=== PATIENT | male | born 1985 | race Caucasian/White ===

== ENCOUNTER 2016-11-18 21:10 | Emergency (ER) | payer OTHER ==
[~2016-11-18] VITALS: Ht 185.4 cm; Wt 95.5 kg
[2016-11-18 21:33] VITALS: BP 145/92; PULSE 78; RESP 24; O2SAT 99
--- NOTE | 2016-11-18 22:56 | ED.REPORT ---
HPI-General Illness Date of Service Nov 18, 2016 ED Provider: Adi Wayne MD A 31 year old male presents to the ED seeking help for opioid dependence that began 3 months ago. Patient has had several previous injuries that resulted in chronic neck and back pain. He began taking approx. 90 mg of Oxycodone per day 3 months ago. He also reports smoking heroin on occasion. Patient last used opiates this morning and also admits to using Clonazepam. He denies any EtOH use , THC use or cigarette usage. Nursing Notes Stated Complaint: MEDS TO SEE QUENTIN Chief Complaint: Substance Abuse Nursing Notes Reviewed: Yes Allergies: Coded Allergies: No Known Allergies (Verified , 11/18/16) Scheduled Buprenorphine HCl/Naloxone HCl (Suboxone 8 mg-2 mg Sl Film) 1 Each Film 1 EACH SL DAILY General Time Seen by MD: 22:33 Chief Complaint Other (Opiod dependencce) Hx Obtained From: Patient Arrived By: Walk-in Sudden in Onset?: No Onset Occurred: More than a week ago... (3 months) Symptom Duration: Since onset Location: : Back: Neck Quality: Painful Radiation: : Does not radiate Severity: Current: Mild Severity: Maximum: Mild Pertinent Negative: Pt denies other symptoms Recent Healthcare: No recent doctor visit, No recent hospitalization Past Medical History Past Medical History Chronic neck and back pain Past Surgical History None reported. Smoking History Never Smoker Social History Various pain killer abuse Alcohol Use: Denies alcohol use Drug Use: Other (Heroin (smoke)) Other Social History: Poor social support, Local resident Occupation Construction Ambulatory Status Independent Review of Systems Seeking help for opioid dependence Full Review of Systems Constitutional: Denies: Chills, Fever GI: Denies: Nausea, Vomiting Musculoskeletal: Reports: Back pain, Neck pain Complete sys rev & neg: except as marked. Physical Exam Vital Signs Vital Signs Date Time Temp Pulse Resp B/P Pulse Ox O2 Delivery O2 Flow Rate FiO2 11/18/16 23:37 66 16 136/87 98 Room Air 11/18/16 21:33 36.1 78 24 145/92 99 Room Air Initial VS: Reviewed, Vital signs abnormal Neck: Supple, Non-tender, Full range of motion Skin: Warm, Dry, No cyanosis Neurologic: Alert, Oriented, Nonfocal Psychiatric: Mood/affect normal, Behavior normal, Normal thought content General/Constitutional: Awake, Alert, No acute distress, Well appearing, Well developed Appearance / Presentation: Negative: Intoxicated Head / Eyes: Atraumatic, Normocephalic, PERRL Respiratory / Chest: Atraumatic, No respiratory distress Cardiovascular: Peripheral circulation NL, Pulses = bilaterally Abdomen: Atraumatic, Soft Upper Extremities Upper Extremity / MS: Atraumatic, Neurologic intact, Vascular intact Lower Extremity / Pelvis / MS: Atraumatic, Neurologic intact, Vascular intact Re-Eval/Medical Decision Med Decision/Clinical Course 31-year-old male who is a fairly short term user but fairly dependent, using 90 mg of oxycodone a day. He has also tried smoking heroin on several occasions. He has never used IV drugs. He still has a fairly intact lifestyle and support of his family. He desires detox. Suboxone was discussed in depth. He was given a prescription for Suboxone 8/2 mg, one sublingual daily, #10. He will be out of town for 67 days to [place]. Upon return he will follow up with me at [facility]. Time of Eval: 23:04 Patient Status: Condition improved Re-Evaluation/Progress Note: Patient is rechecked. He agrees with the discharge instructions and plan to follow up. All of his questions about Suboxone are addressed. Counseled Regarding: Diagnosis, Lab results, Need for follow-up, When/why to return to ED Discharge & Departure Primary Impression: Opioid dependence with withdrawal Disposition: Home Discharge Condition All VS Reviewed: Yes Condition: Stable Patient Instructions: Buprenorphine/Naloxone (Into the mouth) Additional Instructions: Do not use any more opiates. Allow yourself to go into withdrawal for 24 hours , then take 1 dose of Suboxone under the tongue. Be sure and wait a full 24 hours or you will go into withdrawal. The medicine has to be absorbed orally, so do not swallow any saliva for 15-20 minutes while the medicine dissolves. Continue one dose daily until you are able to get into see me at [facility]. Referrals: [facility] Scribe Attestation Portions of this note were transcribed by Mary Delaney. I, Dr. Wayne personally performed the history, physical exam and medical decision-making; I reviewed and confirmed the accuracy of the information in the transcribed note. Signed by: Deonte Ahmadi, 11/18/16 [id number]. Adi Wayne MD Nov 18, 2016 22:56 MARY DELANEY Nov 18, 2016 23:09
[2016-11-18] MEDS ORDERED: BUPR1FIL3 SL (23:25)
[2016-11-18 23:37] VITALS: BP 136/87; PULSE 66; RESP 16; O2SAT 98
== END 2016-11-18 23:38 | disposition home or self-care (01) ==
LOC: SED 21:10
DX: F11.220 Opioid dependence with intoxication, uncomplicated (principal); M54.2 Cervicalgia; M54.9 Dorsalgia, unspecified; G89.29 Other chronic pain